=== PATIENT | female | born 1995 | race Caucasian/White ===

== ENCOUNTER 2020-11-14 00:29 | Inpatient (IN) | payer MEDICAID, OTHER ==
[~2020-11-14] VITALS: Ht 154.9 cm; Wt 101.7 kg
[2020-11-14] MEDS ORDERED: LORazepam 2 MG/ML, 1ML IVPush ONE ×3 (01:00→02:30)
[2020-11-14] MEDS ORDERED: SODIUM CHLORIDE 0.9% 1,000ML IVBOLUS ONE ×2 (01:00→02:30)
[2020-11-14] MEDS ORDERED: PLEASE ENTER ALLERGIES MC SCH (01:00)
--- NOTE | 2020-11-14 01:00 | NUR ---
PATIENT IS NOT IMPROVING WITH ATIVAN DOSAGE. WILL CONTINUE TO MONITOR.
[2020-11-14 01:25] LABS: BASOPHILS % (AUTO) 0 % (0-1); EOSINOPHILS % (AUTO) 2 % (1-7); LYMPHOCYTES % (AUTO) 19 % (22-44); MEAN CORPUSCULAR HGB CONC 33.3 g/dL (32.4-35.8); MEAN PLATELET VOLUME 9.3 fL (7.4-10.4); MONOCYTES % (AUTO) 10 % (2-9); NEUTROPHILS % (AUTO) 69 % (42-75); PLATELET COUNT 352 x10^3/uL (130-400); RED BLOOD COUNT 5.19 x10^6/uL (3.82-5.3); RED CELL DISTRIBUTION WIDTH 15.7 % (9.6-15.2)
[2020-11-14 01:37] LABS: MD NO
[2020-11-14 01:39] LABS: ALANINE AMINOTRANSFERASE 21 U/L (12-78); ALBUMIN 3.8 g/dL (3.4-5.0); ANION GAP 7 mmol/L (5-15); CALCIUM 8.9 mg/dL (8.5-10.1); CHLORIDE 110 mmol/L (98-107)
--- NOTE | 2020-11-14 01:40 | NUR ---
PATIENT WILL NOT FOLLOW SIMPLE TWO STEP COMMANDS. PATIENT IS NOT IMPROVING WITH ATIVAN DOSAGES. WILL CONTINUE TO MONITOR.
[2020-11-14 01:44] LABS: ALKALINE PHOSPHATASE 84 U/L (45-117); BILIRUBIN,TOTAL 0.5 mg/dL (0.2-1.0); TOTAL PROTEIN 7.6 g/dL (6.4-8.2)
--- NOTE | 2020-11-14 01:50 | NUR ---
ONE-ON-ONE CARE INTIATED TO IMPROVE PATIENT SAFETY
[2020-11-14] MEDS ORDERED: SUCCINYLCHOLINE 20 MG/ML, 10ML ONE (02:00)
[2020-11-14] MEDS ORDERED: MIDAZOLAM 1 MG/ML, 5ML ONE (02:00)
[2020-11-14] MEDS ORDERED: ETOMIDATE 20 MG/10 ML ONE (02:00)
[2020-11-14] MEDS ORDERED: PROPOFOL 10 MG/ML, 100ML IV ONE (02:00)
[2020-11-14] MEDS ORDERED: LORazepam 2 MG/ML, 1ML ONE (02:15)
--- NOTE | 2020-11-14 02:15 | NUR ---
NO IMPROVEMENT IN PATIENT STATUS. MD AWARE OF PATIENT STATUS.
--- NOTE | 2020-11-14 02:24 | NUR ---
PATIENT NOT REPSONDING TO ATIVAN DOSAGES. PATIENT REQUIRING ADDITIONAL METHODS FOR PATIENT SAFETY. VSS, WILL CONTINUE TO MONITOR.
[2020-11-14] MEDS ORDERED: SODIUM CHLORIDE 0.9% 1,000 ML IV SCH (02:30)
--- NOTE | 2020-11-14 02:43 | NUR ---
PATIENT REMAINS COMBATIVE, AND UNABLE TO FOLLOW SIMPLE ONE STEP COMMANDS. PATIENT REMAINS IN FOUR POINT RESTRAINTS. PATIENT'S VITAL SIGNS ARE IMPROVING WITH NORMAL SALINE BOLUS. WILL CONITNUE TO MONITOR.
--- NOTE | 2020-11-14 02:54 | NUR ---
PER DR PRETTY ANOTHER LITER OF NS TO BE GIVEN AT THIS TIME.
--- NOTE | 2020-11-14 02:58 | NUR ---
PATIENT REMAINS COMBATIVE. NO SUCCESS WITH PATIENT SEDATION WITH ATIVAN.
[2020-11-14] MEDS ORDERED: MIDAZOLAM HCL 50 MG in SODIUM CHLORIDE 0.9% 40 ML IV PRN ×4 (03:30→22:30)
[2020-11-14] MEDS ORDERED: SUCCINYLCHOLINE 20 MG/ML, 10ML IVPush ONE (03:30)
[2020-11-14] MEDS ORDERED: ETOMIDATE 20 MG/10 ML IV ONE (03:30)
--- NOTE | 2020-11-14 03:30 | NUR ---
PATIENT IS NO LONGER TOLERATING OWN SECRETIONS, SNORING RESPIRATIONS NOTED. PATIENT TRANSFERRED TO TRAUMA 4 FOR INTUBATION.
--- NOTE | 2020-11-14 03:40 | NUR ---
Patient moved to trauma room and prepared for intubation. This RN assume care. REport received from LINDA Quintanilla.
[2020-11-14] MEDS ORDERED: PROPOFOL 100 ML IV ONE (04:00)
--- NOTE | 2020-11-14 04:00 | NUR ---
Patient intubated successfully. Events as follows: 0340: 20mg Etomidate and 100mg Succ admin 0341: 8.0 ETT inserted; 25 at the lips 0345: OG tube inserted 0406: 16f gee catheter inserted with clear urine return.
[2020-11-14] MEDS ORDERED: hydrALAzine 20 MG/ML, 1ML IVPush PRN (04:30)
[2020-11-14] MEDS ORDERED: LACTATED RINGERS 1,000 ML IV SCH ×2 (04:30→08:08)
[2020-11-14 05:57] VITALS: BP 121/81
[2020-11-14] MEDS ORDERED: LORazepam 2 MG/ML, 1ML IVPush PRN (07:30)
[2020-11-14] MEDS: PROPOFOL 100 ML IV PRN ×4 (07:44→22:12)
[2020-11-14] MEDS: SODIUM CHLORIDE FLUSH 10ML SYR IVF SCH ×2 (10:00→19:27)
[2020-11-14] MEDS ORDERED: GLUCAGON 1 MG IM PRN (10:00)
[2020-11-14] MEDS ORDERED: LIDOCAINE-MPF 1%, 2ML ENDO PRN (10:00)
[2020-11-14] MEDS ORDERED: DEXTROSE 4 GM TAB.CHEW PO PRN (10:00)
[2020-11-14] MEDS ORDERED: DEXTROSE 50%, 50ML SYRINGE IVPush PRN (10:00)
[2020-11-14] MEDS ORDERED: PROPOFOL 100 ML IV PRN (10:00)
[2020-11-14] MEDS ORDERED: PHARMACY MAY ADJ FOR RENAL FX MC SCH (10:00)
[2020-11-14] MEDS ORDERED: ONDANSETRON 2MG/ML, 2ML IV PRN (10:00)
[2020-11-14] MEDS: HEPARIN 5,000 UNITS/ML, 1ML SQ SCH ×2 (10:01→17:24)
[2020-11-14 10:57] LABS: AMPHETAMINE SCREEN, URINE Positive (Negative); BARBITURATE SCREEN, URINE Negative (Negative); BENZODIAZEPINE SCREEN, URINE Positive (Negative); CANNABINOID SCREEN, URINE Positive (Negative); COCAINE SCREEN, URINE Negative (Negative); METHADONE SCREEN, URINE Negative (Negative); OPIATE SCREEN, URINE Negative (Negative)
[2020-11-14] MEDS: PANTOPRAZOLE 40MG TABLET PO SCH (19:26)
[2020-11-14] MEDS ORDERED: FENTANYL PF 100 MCG/2ML IVPush PRN (22:00)
[2020-11-15] MEDS: HEPARIN 5,000 UNITS/ML, 1ML SQ SCH ×3 (00:43→17:55)
[2020-11-15] MEDS: PROPOFOL 100 ML IV PRN ×2 (00:47→04:04)
[2020-11-15 04:00] VITALS: BP 125/72
[2020-11-15 04:26] LABS: BASOPHILS % (AUTO) 0 % (0-1); EOSINOPHILS % (AUTO) 3 % (1-7); LYMPHOCYTES % (AUTO) 23 % (22-44); MEAN CORPUSCULAR HEMOGLOBIN 27.9 pg (27.0-34.8); MEAN CORPUSCULAR HGB CONC 33.1 g/dL (32.4-35.8); MEAN PLATELET VOLUME 9.1 fL (7.4-10.4); MONOCYTES % (AUTO) 9 % (2-9); NEUTROPHILS % (AUTO) 65 % (42-75); PLATELET COUNT 212 x10^3/uL (130-400); RED BLOOD COUNT 4.06 x10^6/uL (3.82-5.3); RED CELL DISTRIBUTION WIDTH 15.4 % (9.6-15.2)
[2020-11-15 04:27] LABS: MD NO
[2020-11-15 04:38] LABS: ANION GAP 6 mmol/L (5-15); CHLORIDE 111 mmol/L (98-107); CREATININE 0.79 mg/dL (0.55-1.02)
[2020-11-15] MEDS ORDERED: DEXMEDETOMIDINE 200 MCG in SODIUM CHLORIDE 0.9% 48 ML IV PRN (08:30)
[2020-11-15] MEDS: PANTOPRAZOLE 40MG TABLET PO SCH (09:10)
[2020-11-15] MEDS: SODIUM CHLORIDE FLUSH 10ML SYR IVF SCH (09:11)
[2020-11-15 19:00] VITALS: BP 141/99
== END 2020-11-15 19:36 | disposition left against medical advice (07) | DRG 917 ==
LOC: ED 00:59 → EDIP 04:34 → CCU 05:29 → 3N 11-15 15:00
PROVIDERS: ADMIT Internal Medicine; ATTEND Internal Medicine
PROC: 5A1945Z Respiratory Ventilation, 24-96 Consecutive Hours (ICD-10-PCS; principal; 2020-11-14)
PROC: 0BH17EZ Insertion of Endotracheal Airway into Trachea, Via Natural or Artificial Opening (ICD-10-PCS; 2020-11-14)
DX: T43.621A Poisoning by amphetamines, accidental (unintentional), initial encounter (principal); G92 Toxic encephalopathy; J96.00 Acute respiratory failure, unspecified whether with hypoxia or hypercapnia; N17.9 Acute kidney failure, unspecified; F15.10 Other stimulant abuse, uncomplicated; F41.9 Anxiety disorder, unspecified; Z63.8 Other specified problems related to primary support group; Y92.89 Other specified places as the place of occurrence of the external cause; R00.0 Tachycardia, unspecified
CPT/HCPCS: 31500; 36415; 36600; 71045; 80048; 80053; 80307; 80320; 82803; 83036; 83735; 84443; 84478; 84703; 85025; 87070; 87081; 87205; 93005; 94002; 94003; 96361; 96376; 99291; G0378; J1644; J2250; J2405; J2704; G0480; J0330; J2060; J7030; J7120